=== PATIENT | male | born 1930 ===

== ENCOUNTER 2020-04-08 15:42 | Outpatient (CLI) | payer MEDICARE, BC ==
[2020-04-08] VITALS (7 sets, daily range): BP systolic 121–148; BP diastolic 60–90
[~2020-04-08] VITALS: Ht 160 cm; Wt 61.2 kg
[~2020-04-08 15:42] MED LIST: BAMLANIVIMAB 700MG/200ML 200 ML IV ONE
== END 2020-04-08 17:55 | disposition home or self-care (01) ==
LOC: ER 15:42
PROVIDERS: ATTEND Internal Medicine
DX: I25.10 Atherosclerotic heart disease of native coronary artery without angina pectoris (principal); I48.91 Unspecified atrial fibrillation; E78.5 Hyperlipidemia, unspecified; G47.30 Sleep apnea, unspecified; I42.9 Cardiomyopathy, unspecified; D64.9 Anemia, unspecified; M19.90 Unspecified osteoarthritis, unspecified site; D59.4 Other nonautoimmune hemolytic anemias; I12.9 Hypertensive chronic kidney disease with stage 1 through stage 4 chronic kidney disease, or unspecified chronic kidney disease; N18.2 Chronic kidney disease, stage 2 (mild); Z86.19 Personal history of other infectious and parasitic diseases; Z95.5 Presence of coronary angioplasty implant and graft; Z53.8 Procedure and treatment not carried out for other reasons